=== PATIENT | female | born 1995 | race Caucasian/White ===

== ENCOUNTER 2022-06-15 13:04 | Emergency (ER) | payer OTHER ==
[~2022-06-15] VITALS: Ht 154.9 cm; Wt 52.2 kg
[2022-06-15 13:09] VITALS: BP 116/70
[2022-06-15] MEDS ORDERED: IBUP-1842 PO (16:16)
== END 2022-06-15 16:26 | disposition home or self-care (01) ==
LOC: MED 13:04
DX: H66.93 Otitis media, unspecified, bilateral (principal); Z79.1 Long term (current) use of non-steroidal anti-inflammatories (NSAID)
CPT/HCPCS: 99282